=== PATIENT | female | born 1950 | race Caucasian/White ===

== ENCOUNTER → 2023-07-28 11:28 | Outpatient (REF) | payer MEDICARE, OTHER, SELFPAY ==
[2023-07-28 15:35] LABS: % Basophils 0.8 % (0-2); % Eosinophils 0.8 % (0-6); % Immature Granulocytes 0.3 % (0-0.5); % Lymphocytes 28.6 % (20.5-51.1); % Monocytes 4.6 % (1.7-9.3); % Neutrophils 64.9 % (42.2-75.2); Absolute Basophils 0.1 10^3/uL (0-0.2); Absolute Eosinophils 0.1 10^3/uL (0-0.7); Absolute Lymphocytes 1.9 10^3/uL (1.2-3.4); Absolute Monocytes 0.3 10^3/uL (0.1-0.6); Absolute Neutrophils 4.2 10^3/uL (1.4-6.5); Hematocrit 41.4 % (37.0-47.0); Hemoglobin 13.9 g/dL (12.0-16.0); Mean Corp Hgb Conc. 33.6 g/dL (33.0-37.0); Mean Corpuscular Hgb 29.5 pg (27.0-31.0); Mean Corpuscular Volume 87.9 fL (81.0-99.0); Mean Platelet Volume 9.7 fL (7.4-10.4); Nucleated Red Blood Cells % 0 %; Platelet Count 310 10^3/uL (130-400); Red Blood Cell Count 4.71 10^6/uL (4.20-5.40); Red Cell Dist. Width 13.8 % (11.5-14.5); White Blood Cell Count 6.5 10^3/uL (4.8-10.8)
[2023-07-28 15:45] LABS: ALT (SGPT) 34 U/L (0-35); AST (SGOT) 41 U/L (14-36); Albumin 4.3 g/dl (3.5-5.0); Alkaline Phosphatase 61 U/L (38-126); Blood Urea Nitrogen 19 mg/dl (7-17); Carbon Dioxide 29 mmol/L (22-30); Chloride 101 mmol/L (98-107); Glucose 118 mg/dl (70-99); HDL Cholesterol 78 mg/dl; LDL Cholesterol, Calculated 71 mg/dl; Potassium 4.2 mmol/L (3.5-5.1); Sodium 140 mmol/L (135-145); Total Bilirubin 0.7 mg/dl (0.2-1.3); Total Cholesterol 166 mg/dl (50-199); Total Protein 7.9 g/dl (6.3-8.2); Triglyceride 88 mg/dl (10-149); Very Low Density Lipoprotein 17 mg/dl (0-30); eGFR > 60.00
[2023-07-29 08:24] LABS: Glycohemoglobin (HgbA1c) 6.6 % (4.0-5.6)
== END ==
LOC: HWLAB 11:28
PROVIDERS: ATTENDING PHYSICIAN Internal Medicine Rheumatology; FAMILY PHYSICIAN Nurse Practitioner Adult Health
DX: E78.2 Mixed hyperlipidemia (principal); R73.03 Prediabetes; E66.1 Drug-induced obesity; M06.4 Inflammatory polyarthropathy; M16.0 Bilateral primary osteoarthritis of hip; M17.0 Bilateral primary osteoarthritis of knee; M48.061 Spinal stenosis, lumbar region without neurogenic claudication; M50.30 Other cervical disc degeneration, unspecified cervical region; M51.37 Other intervertebral disc degeneration, lumbosacral region; M65.342 Trigger finger, left ring finger; M79.10 Myalgia, unspecified site; Z68.44 Body mass index [BMI] 60.0-69.9, adult
CPT/HCPCS: 36415; 80053; 80061; 83036; 85025; 86140

== ENCOUNTER → 2023-09-08 12:00 | Outpatient (REF) | payer MEDICARE, OTHER, SELFPAY ==
--- NOTE | 2023-09-05 12:29 | PN.DIAED02 ---
Referral
DSME Class Series Code: [id number]
Referred For: Diabetes Self-Management Training
PHI Release Authorization Form Signed: Yes
Demographic
(1) Type 2 diabetes mellitus
Status: Acute Code(s): E11.9 - Type 2 diabetes mellitus without complications
Patient's primary language-: Sami
Education: Advanced college degree
Occupation: Retired
- Social
Primary Support Person: Self
Primary Care Takers: Self
Living Arrangements: Self
- Learning Methods
Preferred Method: Reading, Hands-on demonstration, Other (visual learner)
Barriers to Learning: None
Glycemic Control
- Blood Glucose Monitoring Assessment
Date: 09/05/23
Blood glucose monitoring at home: No
Monitor Brands: [employer] (Contour Next EZ)
Frequency: 2x per day
Time: fasting, after breakfast, after lunch, after dinner
- Hemoglobin A1c
Date: 07/28/23
A1C Percentage (%): 6.6 (6.2% 03/13/23)
Medical History of Diabetes
Family Diabetes History: Other (2 cousins)
Previous Diabetes Education: No
Previous visit with Dietitian: No
Complications/Comorbidity/Specialist: Neuropathy, Other / symptoms (3 TIA (10/2020), Obesity, RA, osteoarthritis)
Measures
- Anthropometrics
Height: 5 ft
Actual Weight: 309 lb 8 oz
- Blood Pressure / Pulse
Blood pressure: 148/57
- Diabetes Management
Medical Management for Diabetes: Complete physical exam (07/2023), Dental exam (08/2023), Dilated eye exam (09/2022), Flu Vaccination (03/2023), Foot exam (09/2023), Pneumonia vaccination (has received,date unknown), Other (Covid-19 vaccine-dates
unknown 'I have had all shots')
Self-Care
- Tobacco Usage
Do you now, or have you ever smoked?: Never smoked
- Alcohol & Drugs Usage
Drinks Alcohol: Yes
Amount/day: Rarely
- Meals & Dining
Meals & Dining: Patient skips meals: Yes ('sometimes'. discussed), Food Intolerance / Allergy: No, Cultural / Bahai Dietary Needs: No
Primary Food Gluer And Slicer Hand: Friend
Primary Continuous Dryout Operator: Self
Dining Out Frequency: 4-6x per week (3-4)
- Physical Activity
Physical Limitation: Yes (using single pt cane,)
Patient participates in physical Activity: Yes
Activity Types: Other (walking/stretching/PT exercise)
Duration: 10-20 minutes (10-15)
Frequency: 3-5x per week (3)
Intensity: Easy
- Patient-Self Assessment
Diabetes Knowledge: Fair
Feelings About Diabetes: Denial, Overwhelmed / Confused, Sadness / Depression
General Health: Good
Importance of Health: Extremely
Stress Level: Medium
Depression Survey Score: 2
Care Plan
- Education Needs
Patient Education Needs: Diabetes disease process, Chronic complications, Acute complications, Medication, Monitoring, Physical activity, Psychosocial Adjustment, Nutritional management, Goal setting & problem solving
Recommended Diabetes Training Program based on assessment: Outpatient Diabetes Education Program
- Plan of Care
Plan of Care:
Kianna recently diagnosed T2DM, A1C 6.6%. She states she is in denial and would 'like to wish it away'. Provided with and instructions given on Contour NExt EZ glucometer. Good return demonstration with result of 96 mg/dl. Initially fearful to stick
herself but states 'it wasn't bad', lancing device set at 2. Aware of pesting technique, testing pattern and expected results. Handout with pattern and results provided for reference as well as logsheet to record results. She will call [facility]
for RX for the test strips and lancets. Wrote down exactly what to ask for. She was started on Mounjaro for both blood sugar control and obesity. Using her home scale, she has lost 5# to date. She states she does not eat very much. She is up to date
on all appointments. History of RA and osteo which often limits her ability to participate in exercise. Handout on chair exercises given, she has a band at home. Handout on snack options given. Goals established and directions to classroom given.
Phone number provided for any follow up questions.
--- NOTE | 2023-09-05 12:58 | PN.DIAED04 ---
Education Record
- Education Record
Class Attended: Class 1 (pre registration 09/05/23 for outpt DSME classes starting 09/08/23)
DSME Class Series Code: [id number]
Instructor: Registered Nurse (Rosalie Pedro, RN, BSN, [facility])
Class Curriculum:
Outpatient Diabetes Education Program:
Initial Assessment (45 minutes)
Individualized assessment
Develop personal strategies to promote health and behavior change
Development of diabetes self-management support plan
Class Length (mins): 90
Pre-Program Knowledge: Needs review / Assistance
Pre-Test Score (%): 65
Goals
- Goal 1
Being Active: Exercise 15 minutes-3 times per week (walking and stretching. Handout on chair exercises provided.)
Goals To Be Evaluated: Exercise 15 mins-3x/week
- Goal 2
Healthy Eating: Make better food choices
Goals To Be Evaluated: Make better food choices
- Goal 3
Monitoring: Take blood sugar in the prescribed pattern (Handout provided )
Goals To Be Evaluated: Test BG-prescribed times
--- NOTE | 2023-09-09 09:47 | PN.DIAED14 ---
This is to notify you that your patient with diabetes, NAPOLEON RAHMAN ( 1950), has enrolled in our diabetes self-management classes that are being held at [facility].
These classes will include an introduction to diabetes, diet, medication, exercise and prevention of complications. At the end of our class series, you will receive a report of your patient's participation and progress for your records.
Please contact me at the Diabetes Center, , if there is any particular information regarding your patient that might be helpful to me.
Sincerely,
--- NOTE | 2023-09-11 14:55 | PN.DIAED06 ---
Meal Plans - Regular
- Meal Plan
Diabetic Meal Plan Name: 1400 calories
Breakfast - Total Carbohydrate (grams): 30
Breakfast - Starch Carbohydrate: 0
Breakfast - Fruit Carbohydrate: 0
Breakfast - Milk Carbohydrate: 0
Breakfast - Nonstarchy Vegetables: Yes
Breakfast - Meat/Protein: 1
Breakfast - Fat: 2
Morning Snack - Total Carbohydrate (grams): 15
Morning Snack - Starch Carbohydrate: 0
Morning Snack - Fruit Carbohydrate: 0
Morning Snack - Milk Carbohydrate: 0
Morning Snack - Nonstarchy Vegetables: Yes
Morning Snack - Meat/Protein: 0.5
Morning Snack - Fat: 0
Lunch - Total Carbohydrate (grams): 30
Lunch - Starch Carbohydrate: 0
Lunch - Fruit Carbohydrate: 0
Lunch - Milk Carbohydrate: 0
Lunch - Nonstarchy Vegetables: Yes
Lunch - Meat/Protein: 2
Lunch - Fat: 1
Afternoon Snack - Total Carbohydrate (grams): 15
Afternoon Snack - Starch Carbohydrate: 0
Afternoon Snack - Fruit Carbohydrate: 0
Afternoon Snack - Milk Carbohydrate: 0
Afternoon Snack - Nonstarchy Vegetables: Yes
Afternoon Snack - Meat/Protein: 0.5
Afternoon Snack - Fat: 0
Dinner - Total Carbohydrate (grams): 30
Dinner - Starch Carbohydrate: 0
Dinner - Fruit Carbohydrate: 0
Dinner - Milk Carbohydrate: 0
Dinner - Nonstarchy Vegetables: Yes
Dinner - Meat/Protein: 2
Dinner - Fat: 1
Evening Snack - Total Carbohydrate (grams): 15
Evening Snack - Starch Carbohydrate: 0
Evening Snack - Fruit Carbohydrate: 0
Evening Snack - Milk Carbohydrate: 0
Evening Snack - Nonstarchy Vegetables: Yes
Evening Snack - Meat/Protein: 0
Evening Snack - Fat: 0
--- NOTE | 2023-09-15 14:43 | PN.DIAED04 ---
Education Record
- Education Record
Class Attended: Class 1
DSME Class Series Code: [id number]
Instructor: Nurse Practitioner (JORGE A Aparicio)
Class Length (mins): 120
Post-Class 1 Test Score (%): 100
== END ==
LOC: DES 12:00
PROVIDERS: ATTENDING PHYSICIAN Nurse Practitioner Adult Health
DX: E11.9 Type 2 diabetes mellitus without complications (principal)
CPT/HCPCS: 99078

== ENCOUNTER → 2023-09-15 12:00 | Outpatient (REF) | payer MEDICARE, OTHER, SELFPAY ==
--- NOTE | 2023-09-17 08:18 | PN.DIAED04 ---
Education Record
- Education Record
Class Attended: Class 2
[facility] Class Series Code: [id number]
Instructor: Registered Dietitian (Neha Jo, BIRGITN, LDN)
Class Length (mins): 120
== END ==
LOC: DES 12:00
PROVIDERS: ATTENDING PHYSICIAN Nurse Practitioner Adult Health
DX: E11.9 Type 2 diabetes mellitus without complications (principal)
CPT/HCPCS: 99078

== ENCOUNTER → 2023-09-17 11:33 | Outpatient (REF) | payer MEDICARE, OTHER, SELFPAY | LOC: HWWDC 11:33 | PROVIDERS: ATTENDING PHYSICIAN Nurse Practitioner Adult Health | DX: Z12.31 Encounter for screening mammogram for malignant neoplasm of breast (principal) | CPT/HCPCS: 77063; 77067 ==

== ENCOUNTER → 2023-09-22 12:00 | Outpatient (REF) | payer MEDICARE, OTHER, SELFPAY | LOC: DES 12:00 | PROVIDERS: ATTENDING PHYSICIAN Nurse Practitioner Adult Health | DX: E11.9 Type 2 diabetes mellitus without complications (principal) | CPT/HCPCS: 99078 ==

== ENCOUNTER → 2023-10-06 12:00 | Outpatient (REF) | payer MEDICARE, OTHER, SELFPAY ==
--- NOTE | 2023-10-06 15:40 | PN.DIAED04 ---
Education Record
- Education Record
Class Attended: Class 4
DSME Class Series Code: [id number]
Instructor: Nurse Practitioner (JORGE A Aparicio)
Class Length (mins): 120
Post-Class 4 Test Score (%): 87
== END ==
LOC: DES 12:00
PROVIDERS: ATTENDING PHYSICIAN Nurse Practitioner Adult Health
DX: E11.9 Type 2 diabetes mellitus without complications (principal)
CPT/HCPCS: 99078

== ENCOUNTER → 2023-10-13 12:00 | Outpatient (REF) | payer MEDICARE, OTHER, SELFPAY ==
--- NOTE | 2023-10-14 08:06 | PN.DIAED16 ---
This is to notify you that your patient with diabetes, NAPOLEON RAHMNA ( 1950), has attended the entire series of Diabetes Self-Management Education Classes.
Class 1 (120 minutes): Diabetes Overview - monitoring, stress/psychosocial adjustment, support, goal setting
Class 2 (120 minutes): Meal Planning - serving sizes, menu plans
Class 3 (120 minutes): Introduction to Carbohydrate Counting, Analyzing Food Labels
Class 4 (120 minutes): Medication, Exercise and Activity
Class 5 (120 minutes): Sick Day Management, Strategies to Reduce Complications, Problem Solving, Resources
The following behavioral goals were identified:
Exercise 15 mins-3x/week
Make better food choices
Test BG-prescribed times
A follow-up call will be made within three to six months to evaluate attainment of these goals and to check post-program Hemoglobin A1c and overall progress. All class participants are encouraged to contact me if I can be any further assistance in
learning how to manage their diabetes.
Sincerely,
JORGE A Covington-, [facility]
Diabetes & Nutrition Services Director
--- NOTE | 2023-10-14 08:32 | PN.DIAED04 ---
Education Record
- Education Record
Class Attended: Class 5
DSME Class Series Code: [id number]
Instructor: Registered Nurse (Rosalie Pedro, RN, BSN, [facility])
Class Curriculum:
Outpatient Diabetes Education Program:
Class 5 (120 minutes)
Prevent, detect, and treat acute complications
Prevent, detect, and treat chronic complications through risk reduction
Develop personal strategies to address psychosocial issues and concerns
Development of diabetes self-management support plan
Letter to physician with DSMS plan attached sent
Class Length (mins): 120
Post-Program Knowledge: Demonstrates competency
Post-Test Score (%): 83
Post-Program Assessment
- Post-Program Assessment
Actual Weight: 297 lb 6 oz
Blood pressure: 161/61
Post-Program Depression Survey Score: 2
Reviewing Previous Goals?: Yes
Pre-Program Depression Survey Score: 2
- Goals 1 Evaluation
Goals To Be Evaluated: Exercise 15 mins-3x/week
- Goals 2 Evaluation
Goals To Be Evaluated: Make better food choices
- Goals 3 Evaluation
Goals To Be Evaluated: Test BG-prescribed times
== END ==
LOC: DES 12:00
PROVIDERS: ATTENDING PHYSICIAN Family Medicine
DX: E11.9 Type 2 diabetes mellitus without complications (principal)
CPT/HCPCS: 99078

== ENCOUNTER → 2023-10-29 12:24 | Outpatient (REF) | payer MEDICARE, OTHER, SELFPAY | LOC: RAD 12:24 | PROVIDERS: ATTENDING PHYSICIAN Nurse Practitioner Adult Health | DX: R60.0 Localized edema (principal); M79.605 Pain in left leg | CPT/HCPCS: 93971 ==

== ENCOUNTER → 2023-11-04 12:00 | Outpatient (REF) | payer MEDICARE, OTHER, SELFPAY ==
[2023-11-04 15:18] LABS: % Basophils 0.3 % (0-2); % Eosinophils 3.2 % (0-6); % Immature Granulocytes 0.1 % (0-0.5); % Lymphocytes 49.2 % (20.5-51.1); % Monocytes 4.5 % (1.7-9.3); % Neutrophils 42.7 % (42.2-75.2); Absolute Eosinophils 0.4 10^3/uL (0-0.7); Absolute Lymphocytes 5.8 10^3/uL (1.2-3.4); Absolute Monocytes 0.5 10^3/uL (0.1-0.6); Hemoglobin 13.6 g/dL (12.0-16.0); Mean Corp Hgb Conc. 33.2 g/dL (33.0-37.0); Mean Corpuscular Hgb 29.3 pg (27.0-31.0); Mean Corpuscular Volume 88.4 fL (81.0-99.0); Nucleated Red Blood Cells % 0 %; Platelet Count 323 10^3/uL (130-400); Red Blood Cell Count 4.64 10^6/uL (4.20-5.40); Red Cell Dist. Width 15.3 % (11.5-14.5); White Blood Cell Count 11.8 10^3/uL (4.8-10.8)
[2023-11-04 15:40] LABS: ALT (SGPT) 39 U/L (0-35); AST (SGOT) 39 U/L (14-36); Albumin 4.3 g/dl (3.5-5.0); Alkaline Phosphatase 67 U/L (38-126); Blood Urea Nitrogen 25 mg/dl (7-17); Calcium 9.6 mg/dl (8.4-10.2); Carbon Dioxide 26 mmol/L (22-30); Chloride 102 mmol/L (98-107); Glucose 83 mg/dl (70-99); Potassium 4.2 mmol/L (3.5-5.1); Sodium 138 mmol/L (135-145); Total Bilirubin 0.5 mg/dl (0.2-1.3); Total Protein 7.3 g/dl (6.3-8.2); eGFR > 60.00
[2023-11-04 15:42] LABS: C-Reactive Protein < 5.00 mg/L (0.0-10.00)
[2023-11-04 15:54] LABS: Microalbumin, Random Urine 5.1 mg/dl (0.6-1.7); Microalbumin/creatinine Ratio 46.9 mg/g
[2023-11-05 09:09] LABS: Glycohemoglobin (HgbA1c) 5.8 % (4.0-5.6)
== END ==
LOC: HWLAB 12:00
PROVIDERS: ATTENDING PHYSICIAN Internal Medicine Rheumatology; FAMILY PHYSICIAN Nurse Practitioner Adult Health
DX: E66.1 Drug-induced obesity (principal); M06.4 Inflammatory polyarthropathy; M16.0 Bilateral primary osteoarthritis of hip; M17.0 Bilateral primary osteoarthritis of knee; M48.061 Spinal stenosis, lumbar region without neurogenic claudication; M50.30 Other cervical disc degeneration, unspecified cervical region; M51.37 Other intervertebral disc degeneration, lumbosacral region; M79.10 Myalgia, unspecified site; Z68.44 Body mass index [BMI] 60.0-69.9, adult; E11.9 Type 2 diabetes mellitus without complications; K76.0 Fatty (change of) liver, not elsewhere classified
CPT/HCPCS: 36415; 80053; 82043; 82570; 83036; 85025; 86140

== ENCOUNTER → 2023-12-24 10:26 | Outpatient (REF) | payer MEDICARE, OTHER, SELFPAY ==
[2023-12-24 13:04] LABS: % Basophils 0.6 % (0-2); % Immature Granulocytes 0.1 % (0-0.5); % Lymphocytes 24.8 % (20.5-51.1); % Monocytes 5.4 % (1.7-9.3); % Neutrophils 68.1 % (42.2-75.2); Absolute Basophils 0.1 10^3/uL (0-0.2); Absolute Eosinophils 0.1 10^3/uL (0-0.7); Absolute Lymphocytes 2.1 10^3/uL (1.2-3.4); Absolute Monocytes 0.5 10^3/uL (0.1-0.6); Absolute Neutrophils 5.6 10^3/uL (1.4-6.5); Hematocrit 38.3 % (37.0-47.0); Hemoglobin 13.1 g/dL (12.0-16.0); Mean Corp Hgb Conc. 34.2 g/dL (33.0-37.0); Mean Corpuscular Hgb 30.2 pg (27.0-31.0); Mean Corpuscular Volume 88.2 fL (81.0-99.0); Mean Platelet Volume 9.8 fL (7.4-10.4); Nucleated Red Blood Cells % 0 %; Platelet Count 305 10^3/uL (130-400); Red Blood Cell Count 4.34 10^6/uL (4.20-5.40); Red Cell Dist. Width 14.6 % (11.5-14.5); White Blood Cell Count 8.3 10^3/uL (4.8-10.8)
[2023-12-24 13:18] LABS: ALT (SGPT) 17 U/L (0-35); AST (SGOT) 24 U/L (14-36); Albumin 4.4 g/dl (3.5-5.0); Alkaline Phosphatase 67 U/L (38-126); Blood Urea Nitrogen 15 mg/dl (7-17); Calcium 9.5 mg/dl (8.4-10.2); Carbon Dioxide 28 mmol/L (22-30); Chloride 103 mmol/L (98-107); Direct Bilirubin 0.2 mg/dl (0.0-0.4); GGTP 30 U/L (12-43); Glucose 103 mg/dl (70-99); Sodium 138 mmol/L (135-145); Total Bilirubin 0.5 mg/dl (0.2-1.3); Total Protein 7.1 g/dl (6.3-8.2); eGFR > 60.00
== END ==
LOC: HWLAB 10:26
PROVIDERS: ATTENDING PHYSICIAN Internal Medicine Rheumatology; FAMILY PHYSICIAN Nurse Practitioner Adult Health
DX: E66.1 Drug-induced obesity (principal); M06.4 Inflammatory polyarthropathy; M16.0 Bilateral primary osteoarthritis of hip; M17.0 Bilateral primary osteoarthritis of knee; M48.061 Spinal stenosis, lumbar region without neurogenic claudication; M50.30 Other cervical disc degeneration, unspecified cervical region; M51.37 Other intervertebral disc degeneration, lumbosacral region; M79.10 Myalgia, unspecified site; M81.0 Age-related osteoporosis without current pathological fracture; D72.829 Elevated white blood cell count, unspecified; R79.89 Other specified abnormal findings of blood chemistry; E78.5 Hyperlipidemia, unspecified
CPT/HCPCS: 36415; 80053; 82248; 82977; 85025; 86140

== ENCOUNTER 2023-12-31 12:44 | Emergency (ER) | payer MEDICARE, OTHER, SELFPAY ==
[2023-12-31 12:52] VITALS: BP 124/58
[2023-12-31 13:04] LABS: % Basophils 0.6 % (0-2); % Eosinophils 0.5 % (0-6); % Immature Granulocytes 0.2 % (0-0.5); % Lymphocytes 29.7 % (20.5-51.1); % Monocytes 5.3 % (1.7-9.3); % Neutrophils 63.7 % (42.2-75.2); Absolute Basophils 0.1 10^3/uL (0-0.2); Absolute Lymphocytes 2.6 10^3/uL (1.2-3.4); Absolute Monocytes 0.5 10^3/uL (0.1-0.6); Absolute Neutrophils 5.5 10^3/uL (1.4-6.5); Hematocrit 40.5 % (37.0-47.0); Hemoglobin 14.1 g/dL (12.0-16.0); Mean Corp Hgb Conc. 34.8 g/dL (33.0-37.0); Mean Corpuscular Hgb 29.6 pg (27.0-31.0); Mean Corpuscular Volume 84.9 fL (81.0-99.0); Mean Platelet Volume 9.3 fL (7.4-10.4); Nucleated Red Blood Cells % 0 %; Platelet Count 314 10^3/uL (130-400); Red Blood Cell Count 4.77 10^6/uL (4.20-5.40); Red Cell Dist. Width 14.7 % (11.5-14.5); White Blood Cell Count 8.7 10^3/uL (4.8-10.8)
[2023-12-31 13:23] LABS: ALT (SGPT) 22 U/L (0-35); AST (SGOT) 27 U/L (14-36); Albumin 4.5 g/dl (3.5-5.0); Alkaline Phosphatase 65 U/L (38-126); Blood Urea Nitrogen 17 mg/dl (7-17); Calcium 9.2 mg/dl (8.4-10.2); Carbon Dioxide 25 mmol/L (22-30); Chloride 102 mmol/L (98-107); Glucose 115 mg/dl (70-99); Potassium 3.5 mmol/L (3.5-5.1); Sodium 136 mmol/L (135-145); Total Bilirubin 0.7 mg/dl (0.2-1.3); Total Protein 7.2 g/dl (6.3-8.2); eGFR > 60.00
[2023-12-31 13:39] VITALS: BP 115/62
[2023-12-31 13:45] VITALS: BMI 53.0
[2023-12-31 14:23] VITALS: BP 107/72
[2023-12-31 15:00] VITALS: BP 118/92
--- NOTE | 2023-12-31 15:00 | ED.GENMED ---
History of Present Illness
General
Chief Complaint: Heart Rate Problem
Time Seen by Provider: 12/31/23 13:48
History of Present Illness
History of Present Illness:
73-year-old female history of TIAs, hypertension, hyperlipidemia presenting with palpitations starting yesterday. Patient states that she had episode of nonbloody diarrhea yesterday which is since resolved. Patient states that she followed up with
her PCP today who was noted to be in atrial fibrillation with RVR and was sent to the emergency department for further evaluation. Patient states that she has shortness of breath with exertion starting today. Patient states that while walking her
PCPs office, she had a sit and rest secondary to shortness of breath. Patient denies chest pain, lower extremity swelling, fever, chills, cough or urinary symptoms. Pt states she takes baby aspirin, no anticoagulation. Pt denies any palptiations
currently.
Past History
Past History
ED Past Medical History: Other (Rheumatoid arthritis, IBS, colitis)
ED Past Surgical History: Cholecystectomy
Social History
Tobacco: Non-smoker
Alcohol: None
Living: alone
Phy Exam
Physical Exam
Physical Exam:
General: Alert, no acute distress
Head: NCAT
Eyes: clear conjunctiva
Neck: supple
Cardiac: tachycardic, irregularly irregular rhythm
Lungs: clear to auscultation bilaterally. No wheezes, rales, or rhonchi. Speaking full unlabored sentences. No respiratory distress.
Abdomen: soft, nondistended nontender. No rebound or guarding.
MSK: no lower extremity edema bilaterally. No deformity
Skin: warm, dry
Neuro: Alert and oriented x3. no focal deficits
Course
Orders/Labs/Results
Orders:
Orders
12/31/23 12:45
ECG [Electrocardiogram (*1)] Urgent
Reason for Study: Chest Pain
12/31/23 12:46
EKG- Treatment ONCE
12/31/23 12:56
Complete Blood Count/With Diff Urgent
Comprehensive Metabolic Panel Urgent
TSH Reflex To Free T4 Urgent
Comment: ADD ON
12/31/23 14:55
Add On- LAB Routine
Tests Added?: TSH with reflex to free T4
12/31/23 15:24
Diltiazem HCl [Cardizem] 20 mg IV NOW STA
12/31/23 15:25
CXR [CR Chest Portable - 1 View] Urgent
Comment:
Reason For Exam: sob
Reason Study Needs to be Portable: Patient Unstable
12/31/23 15:30
Electrocardiogram (*1) Urgent
Reason for Study: Abnormal EKG
EKG- Treatment ONCE
Diltiazem 125 mg/125 ml Nss [Cardizem] 125 mg in 125 ml IV PER PROTOCOL
Initial dose in mg/hr, then titrate:: 5
Titrate to keep:: Heart rate 80-100 bpm
Titrate by mg/hr:: 2.5 mg/hr
Frequency of titrations (minutes):: 15
Maximum dose in mg/hr:: 15
12/31/23 17:08
Troponin I Urgent
Abnormal Lab Results
12/31/23
12:56
RDW 14.7 H %
(11.5-14.5)
Glucose 115 H mg/dl
(70-99)
12/31/23 12:56
12/31/23 12:56
Vital Signs
Initial and Last Documented VS:
Initial Vital Signs
Temp Pulse Resp Pulse Ox
98.3 F 109 18 97
12/31/23 12:50 12/31/23 12:50 12/31/23 12:50 12/31/23 12:50
Last Documented Vital Signs
Temp Pulse Resp BP Pulse Ox
98.3 F 76 19 124/87 98
12/31/23 12:50 12/31/23 17:00 12/31/23 17:00 12/31/23 18:30 12/31/23 18:30
MDM/Problems Addressed
MDM/Problems Addressed:
Patient presents to the Emergency Department with palpitation, sob
Number and Complexity of Problems Addressed at the Encounter
� Chronic conditions affecting care:
� Acute Exacerbation and/or Progression of Chronic Illness:
� Differential Diagnosis includes: symptomatic afib, hyperthyroidism, electrolyte abnormality
Amount and/or Complexity of Data to be Reviewed and Analyzed
� I performed an independent evaluation of and my interpretation is:
EKG: atrial fibrillation at 140bpm with QTc [address] ST depressions laterally. Repeat EKG shows NSR at 71bpm with TN 168 QTc 425 no acute ischemic changes, previous ST depressions resolved.
CT:
Xrays:
Laboratory Studies: troponin, electrolytes, WBC, hemoglobin, creatinine, TSH within normal limits.
Other:
� Review of other/old records reveals:
� Clinical information was obtained by an independent historian:
� Prescriptions/Medications Considered but not given:
� Further testing considered but not performed:
Risk of Complications and/or Morbidity or Mortality of Patient Management
� Social Determinants of health affecting care:
� Discussion with other providers (PCP, Hospitalists, Consultants, etc): Discussed with DCA PA who evaluated patient at bedside. Because patient is not certain palpitations started yesterday, recommended admission for IV cardizem and will cardiovert
with RICARDA during hospitalization.
� Escalation of care including admission/observation vs risk of discharge considered: 73yoF presenting with palpitations yesterday, shortness of breath starting today, who was found to be in new onset afib with RVR at PCP's office today. Pt states
she had an episode of nonbloody diarrhea yesterday. Otherwise no chest pain, LE edema, fever, chills, cough. Pt evaluated by cardiology who recommended admission due to no known time of onset. On reevaluation, patient spontaneously converted to NSR
prior to administering cardizem. Repeat EKG confirms NSR. Patient evaluated by Dr. Trivedi, cardiology, in ER who recommended discharge with toprol 25mg daily, eliquis, and outpatient echocardiogram. Labs within normal limits. CXR clear. Discussed
results with patient at bedside, discharged home with eliquis/toprol.
*Critical Care Note
Total Time (30-74mins, 75-104mins- exclusive of procedures): Not Applicable
ED Attending Note
-
Portions of this chart may have been created with voice recognition software.� Occasional wrong word or��sound alike� substitutions may have occurred due to the inherent limitations of voice recognition software.
Discharge Plan
Departure
Patient Disposition: Home (Routine Discharge)
Date of Disposition: 12/31/23
Time of Disposition: 18:07
Patient with high blood pressure during this ER visit?: No
Discharge Problem:
Atrial fibrillation, new onset
Instructions: Atrial Fibrillation (DC)
Prescriptions:
New
metoprolol succinate [Toprol XL] 25 mg tablet extended release 24 hr
25 mg PO DAILY Qty: 60 0RF
Eliquis 5 mg tablet
5 mg PO BID Qty: 120 0RF
No Action
acetaminophen [Tylenol Extra Strength] 500 MG tablet
1,000 mg PO DAILY
methotrexate sodium 2.5 MG tablet
15 mg PO SA
folic acid 1 MG tablet
1 mg PO DAILY
hydrochlorothiazide 25 MG tablet
50 mg PO DAILYPRN PRN (Reason: swelling)
losartan 25 mg Tablet
25 mg PO DAILY
oxybutynin chloride [Ditropan] 5 mg Tablet
5 mg PO DAILY
polyethylene glycol 3350 [Miralax] 17 gram Powder In Packet
17 g PO DAILYPRN PRN (Reason: constipation)
cetirizine [Zyrtec] 5 mg Tablet
5 mg PO DAILY
docusate sodium [Colace] 100 mg Capsule
100 mg PO DAILYPRN PRN (Reason: CONSTIPATION)
rosuvastatin 20 mg Tablet
20 mg PO DAILY
aspirin 81 mg Tablet,Delayed Release (Dr/Ec)
81 mg PO DAILY
pantoprazole 40 mg Tablet,Delayed Release (Dr/Ec)
40 mg PO DAILY
tramadol 100 mg Tablet Extended Release 24 Hr
100 mg PO DAILY
Mounjaro 7.5 mg/0.5 mL Pen Injector
7.5 mg SC WE
Referrals:
Mariangel Lozano PA-C [Specified Professional Personl] - 01/27/24 9:20 am (You have a cardiology follow-up appointment at the [place] office with Dr. Chelly Love's physician school psychologist assistant, Mariangel. Please call with questions)
Darlyn Brothers CRNP [Family Provider] -
Activity Restrictions/Additional Instructions:
you are scheduled for an echocardiogram on Friday01/21/24 at 9:20AM at [facility]. Please see order and call with questions.
Take eliquis twice daily. Take metoprolol once daily
Return to the emergency department for palpitations, shortness of breath, chest pain, dizziness, if you hit your head, black/bloody stools or new/worsening symptoms
Interventions
Interventions:
*Risk Screen - Suicide Last Done: 12/31/23 12:50
*General Assessment Last Done: 12/31/23 12:50
*Neglect/Abuse Screening Last Done: 12/31/23 12:50
ED- Fall Risk Assessment Last Done: 12/31/23 13:43
*ED COVID-19 Vaccine History Last Done: 12/31/23 12:50
*Nursing Disposition Last Done: 12/31/23 18:43
ED- Cardiac Assessment Last Done: 12/31/23 13:43
ED- Pulmonary Assessment Last Done: 12/31/23 13:43
Discharge Date and Time
Discharge Date/Time: 12/31/23 18:46
Print Language: KHMER
--- NOTE | 2023-12-31 15:40 | CON.CAR ---
Addendum entered and electronically signed by Santo Trivedi MD 12/31/23 16:38:
I saw and examined the patient.
The Vulcanizing Machine Operator's note was reviewed and I agree with the note.
Comment:
GEN: No distress, awake, Ox3
HEENT: supple, anicteric, mmm
LUNGS: CTA, no wheezes/rales
CV: Reg, S1/S2, 1/6 syst LSB, no gallop
ABD: soft, BS+, NT/ND
EXT: No edema
NEURO: Gross non-focal
SKIN: No rash
Plan:
She has a past medical history of hypertension, hyperlipidemia, obesity, TIAs, and polyarthropathy who presents with diarrhea, for chest fluttering and was found to be in new onset atrial fibrillation. She was sent to the emergency room for further
evaluation was placed on a Cardizem drip. The patient has noticed some intermittent palpitations but was not completely aware of the A-fib. She does not take anticoagulation. The patient then spontaneous converted back into sinus rhythm.
[id number] score is 6. Will start Eliquis 5 mg p.o. twice daily. Would stop aspirin. Will arrange echocardiogram.
Will start Toprol 25 mg daily. Continue Cozaar.
We discussed if she has further palpitations at that point we will consider antiarrhythmic therapy, outpatient monitoring or further management.
We will arrange outpatient follow-up.
Original Note:
Consultation
Consultation Request
Date/Time Consultation Performed: 12/31/23
Requesting Provider: Dr. Jorge
Performing Provider: Liliya Tan PA-C for Dr. Trivedi
Reason for Consultation: afib
Medical History
-
Chief Complaint: afib
History of Present Illness:
Patient is a 73-year-old female with past medical history of hypertension, hyperlipidemia, abnormal LFTs, morbid obesity, inflammatory polyarthropathy, history of TIAs in 2020. She underwent prior cardiac cath lab manager for this which was negative for
arrhythmia. She has not had recurrence of symptoms since. In July of this year she was diagnosed with type 2 diabetes with a hemoglobin A1c of 6.6%. She was started on Mounjaro and since then has lost 43 pounds and was just told that her
hemoglobin A1c had improved to 5.8%. She reports she was feeling well until yesterday when she had a large episode of diarrhea. Then last evening she reports she felt some fluttering in her chest. This morning she felt hot and clammy, as well as
'offkilter'. She had a routine primary care physician appointment scheduled for this morning and upon walking to the appointment at the [facility], felt some shortness of breath and needed to stop and rest on the way up to the
office, which she states she does not normally need to do. EKG completed in office which showed new rapid atrial fibrillation and patient was referred to ER for further evaluation, resulting in cardiology consultation. Patient is not on
anticoagulation, however has been compliant with her aspirin 81 mg daily. She reports she is unable to tell me if she has ever been in A-fib before.
PMH:
Type 2 diabetes diagnosed 08/2023
History of TIAs in 2020
Hypertension
Hyperlipidemia
Abnormal LFTs
Morbid obesity
FAVIAN on CPAP
Inflammatory polyarthropathy
History of PVCs
Past Medical History
Past Medical History: Other (in HPI)
Social History
Living: Alone
Employment: Retired
Family History
Family History: Reviewed & Not Pertinent
Allergies / Home Medications
Allergy/AdvReac Type Severity Reaction Status Date / Time
adhesive tape Allergy Mild SKIN Verified 12/31/23 12:50
IRRITATION
codeine [Codeine] Allergy Nausea / Verified 10/18/22 09:05
Vomiting
thiopental [From Pentothal] Allergy Nausea / Verified 10/18/22 09:05
Vomiting
�Medication �Instructions �Recorded �Confirmed �Type
acetaminophen 500 mg tablet 1,000 mg PO DAILY 11/25/20 10/18/22 History
(Tylenol Extra Strength)
ascorbic acid (vitamin C) 1,000 mg 1,000 mg PO DAILY Supplement 11/25/20 10/18/22 History
tablet (Vitamin C)
folic acid 1 mg tablet 1 mg PO DAILY Supplement 11/25/20 10/18/22 History
hydrochlorothiazide 25 mg tablet 50 mg PO DAILY Fluid 11/25/20 10/18/22 History
retention/Swelling
methotrexate sodium 2.5 mg tablet 15 mg PO SA RA 11/25/20 10/18/22 History
potassium chloride 20 mEq 20 meq PO DAILY 11/25/20 10/18/22 History
tablet,extended release
alendronate 70 mg tablet (Fosamax) 70 mg PO DE LA TORRE 03/20/22 10/18/22 History
losartan 25 mg tablet 25 mg PO DAILY 03/20/22 10/18/22 History
oxybutynin chloride 5 mg tablet 5 mg PO DAILY 03/20/22 10/18/22 History
tramadol 100 mg tablet 100 mg PO DAILY 03/20/22 10/18/22 History
aspirin 81 mg capsule 81 mg PO DAILY 10/15/22 10/18/22 History
calcium carbonate (Tums) 200 mg PO QID PRN INDIGESTION 10/15/22 10/18/22 History
cetirizine 5 mg tablet 5 mg PO DAILY 10/15/22 10/18/22 History
cholecalciferol (vitamin D3) 25 50 mcg PO DAILY 10/15/22 10/18/22 History
mcg (1,000 unit) tablet (Vitamin
D3)
docusate sodium 100 mg capsule 100 mg PO DAILY PRN CONSTIPATION 10/15/22 10/18/22 History
(Colace)
fluticasone propionate 50 1 spray intranasal DAILY PRN 10/15/22 10/18/22 History
mcg/actuation nasal CONGESTION
spray,suspension
lactobacillus combination no.4 3 3,000 mmu cells PO DAILY 10/15/22 10/18/22 History
billion cell capsule (Probiotic)
mecobalamin (vitamin B12) 500 mcg 500 mcg PO DAILY 10/15/22 10/18/22 History
chewable tablet
multivitamin 1 tab PO DAILY 10/15/22 10/18/22 History
polyethylene glycol 3350 17 gram 17 g PO DAILY PRN FIBER 10/15/22 10/18/22 History
oral powder packet (Miralax)
rosuvastatin 20 mg tablet 20 mg PO DAILY 10/15/22 10/18/22 History
sennosides 8.6 mg capsule (senna) 17.2 mg PO HS PRN CONSTIPATION 10/15/22 10/18/22 History
Review of Systems
-
History Source: Patient and Other (friend)
All other systems: Negative unless noted
Physical Exam
Vital Signs
Temp Pulse Resp BP Pulse Ox
98.3 F 115 18 107/72 98
12/31/23 12:50 12/31/23 14:30 12/31/23 14:30 12/31/23 14:23 12/31/23 14:30
Lab Results
12/31/23 12:56
12/31/23 12:56
Physical Exam
General: No Apparent Distress, Comfortable and Other (obese)
HEENT: Normocephalic, Anicteric and Moist Mucous Membranes
Respiratory: Clear and Non Labored Respirations
Cardiac: S1/S2 and Irregular Rhythm
GI: Soft, Non Tender, Non Distended and Normal Bowel Sounds
Musculoskeletal: No Clubbing, No Cyanosis and Edema (trace of B/L LE)
Skin: Warm and Dry
Neuro: AO x 3
Impression / Plan
-
Primary Interventional Physiatrist: Dr. Chelly Love
Assessment:
Presentation with new diagnosis afib with RVR, s/p spontaneous conversion to SR in ER
Type 2 diabetes diagnosed 08/2023, on [facility]
History of TIAs in 2021
Hypertension
Hyperlipidemia
Abnormal LFTs
Morbid obesity
FAVIAN on CPAP
Inflammatory polyarthropathy
History of PVCs
ECHO 12/08/20: EF 55 to 60%, no regional wall motion abnormalities, trace TR, PAP 28 mmHg
Lexiscan nuclear stress test 03/29/21: Normal sestamibi perfusion imaging, EF 64%
Plan:
-Patient presents to [facility] emergency room with new diagnosis A-fib with RVR discovered during routine visit with primary care physician earlier this morning. Fortunately she spontaneously converted to sinus rhythm in ER, after we had
initially discussed admission for IV Cardizem and possible RICARDA/cardioversion in a.m.
-we discussed afib in detail
-? recent diarrhea as possible trigger
-If troponin negative, would plan for discharge from ER with plan for outpatient echocardiogram and cardiac follow-up as already arranged
-Would initiate Eliquis 5 mg twice daily and Toprol 25 mg daily and would stop asa
-TSH pending
-CXR pending
-d/w ER physician. d/w patient and friend at bedside
Data Reviewed
-
EKG: Tracing Personally Visualized and interpreted
Medical Tests (Nuc Med, Echo etc): Report Reviewed by me
Labs: Labs Reviewed by me
Old Records: Reviewed
[2023-12-31 16:39] LABS: TSH Reflex To Free T4 1.16 uIU/ml (0.47-4.68)
[2023-12-31 17:43] LABS: Troponin I < 0.012 ng/ml
[2023-12-31 18:30] VITALS: BP 124/87
== END 2023-12-31 18:46 | disposition home or self-care (01) ==
LOC: EMR 12:44
PROVIDERS: Emergency Medicine; EMERGENCY PHYSICIAN Emergency Medicine; FAMILY PHYSICIAN Nurse Practitioner Adult Health; OTHER PHYSICIAN Internal Medicine Cardiovascular Disease
DX: I48.91 Unspecified atrial fibrillation (principal); E11.9 Type 2 diabetes mellitus without complications; E78.00 Pure hypercholesterolemia, unspecified; I10 Essential (primary) hypertension; G47.33 Obstructive sleep apnea (adult) (pediatric); K58.0 Irritable bowel syndrome with diarrhea; M06.4 Inflammatory polyarthropathy; Z79.01 Long term (current) use of anticoagulants; Z79.82 Long term (current) use of aspirin; Z86.73 Personal history of transient ischemic attack (TIA), and cerebral infarction without residual deficits; Z86.79 Personal history of other diseases of the circulatory system; Z90.49 Acquired absence of other specified parts of digestive tract
CPT/HCPCS: 99284; 71045; 80053; 84443; 84484; 85025; 93005

== ENCOUNTER → 2024-01-21 09:21 | Outpatient (REF) | payer MEDICARE, OTHER, SELFPAY | LOC: RCS 09:21 | PROVIDERS: ATTENDING PHYSICIAN Internal Medicine Cardiovascular Disease; FAMILY PHYSICIAN Nurse Practitioner Adult Health; OTHER PHYSICIAN Internal Medicine Critical Care Medicine; REFERRING PHYSICIAN Internal Medicine Rheumatology | DX: I48.0 Paroxysmal atrial fibrillation (principal) | CPT/HCPCS: 93306; Q9950 ==

== ENCOUNTER → 2024-03-12 11:04 | Outpatient (REF) | payer MEDICARE, OTHER, SELFPAY ==
[2024-03-12 15:35] LABS: ALT (SGPT) 21 U/L (0-35); AST (SGOT) 28 U/L (14-36); Albumin 4.4 g/dl (3.5-5.0); Alkaline Phosphatase 79 U/L (38-126); Blood Urea Nitrogen 15 mg/dl (7-17); Calcium 9.7 mg/dl (8.4-10.2); Carbon Dioxide 30 mmol/L (22-30); Chloride 100 mmol/L (98-107); Glucose 95 mg/dl (70-99); HDL Cholesterol 74 mg/dl; LDL Cholesterol, Calculated 84 mg/dl; Potassium 4.4 mmol/L (3.5-5.1); Sodium 141 mmol/L (135-145); Total Bilirubin 0.3 mg/dl (0.2-1.3); Total Cholesterol 177 mg/dl (50-199); Total Protein 7.3 g/dl (6.3-8.2); Triglyceride 96 mg/dl (10-149); Very Low Density Lipoprotein 19 mg/dl (0-30); eGFR > 60.00
[2024-03-12 15:46] LABS: % Basophils 0.5 % (0-2); % Eosinophils 1.1 % (0-6); % Immature Granulocytes 0.4 % (0-0.5); % Lymphocytes 25.4 % (20.5-51.1); % Monocytes 6.1 % (1.7-9.3); % Neutrophils 66.5 % (42.2-75.2); Absolute Eosinophils 0.1 10^3/uL (0-0.7); Absolute Lymphocytes 2.1 10^3/uL (1.2-3.4); Absolute Monocytes 0.5 10^3/uL (0.1-0.6); Absolute Neutrophils 5.4 10^3/uL (1.4-6.5); Hematocrit 37.5 % (37.0-47.0); Hemoglobin 12.3 g/dL (12.0-16.0); Mean Corp Hgb Conc. 32.8 g/dL (33.0-37.0); Mean Corpuscular Hgb 29.1 pg (27.0-31.0); Mean Corpuscular Volume 88.7 fL (81.0-99.0); Mean Platelet Volume 9.5 fL (7.4-10.4); Nucleated Red Blood Cells % 0 %; Platelet Count 355 10^3/uL (130-400); Red Blood Cell Count 4.23 10^6/uL (4.20-5.40); Red Cell Dist. Width 14.4 % (11.5-14.5); White Blood Cell Count 8.1 10^3/uL (4.8-10.8)
[2024-03-12 16:22] LABS: Microalbumin/creatinine Ratio 47.6 mg/g
[2024-03-13 11:31] LABS: Glycohemoglobin (HgbA1c) 5.4 % (4.0-5.6)
[2024-03-14 19:50] LABS: Beta-2-Microglobulin 2.4 mg/L (<=3.0)
== END ==
LOC: HWLAB 11:04
PROVIDERS: ATTENDING PHYSICIAN Internal Medicine Rheumatology; FAMILY PHYSICIAN Nurse Practitioner Adult Health; REFERRING PHYSICIAN Internal Medicine Hematology & Oncology
DX: D47.2 Monoclonal gammopathy (principal); M06.4 Inflammatory polyarthropathy; Z79.899 Other long term (current) drug therapy; E11.9 Type 2 diabetes mellitus without complications; I48.0 Paroxysmal atrial fibrillation; I48.91 Unspecified atrial fibrillation; E78.00 Pure hypercholesterolemia, unspecified
CPT/HCPCS: 36415; 80053; 80061; 82043; 82232; 82570; 82784; 83036; 83521; 84155; 84165; 85025; 86140; 86334

== ENCOUNTER → 2024-05-03 10:33 | Outpatient (REF) | payer MEDICARE, OTHER, SELFPAY | LOC: HWRAD 10:33 | PROVIDERS: ATTENDING PHYSICIAN Nurse Practitioner Adult Health; OTHER PHYSICIAN Internal Medicine Hematology & Oncology; REFERRING PHYSICIAN Internal Medicine Rheumatology | DX: Z78.0 Asymptomatic menopausal state (principal) | CPT/HCPCS: 77080 ==

== ENCOUNTER → 2024-07-08 13:24 | Outpatient (REF) | payer MEDICARE, OTHER, SELFPAY ==
[2024-07-08 15:36] LABS: % Basophils 0.6 % (0-2); % Eosinophils 1.1 % (0-6); % Immature Granulocytes 0.3 % (0-0.5); % Lymphocytes 33.7 % (20.5-51.1); % Monocytes 5.2 % (1.7-9.3); % Neutrophils 59.1 % (42.2-75.2); Absolute Eosinophils 0.1 10^3/uL (0-0.7); Absolute Lymphocytes 2.4 10^3/uL (1.2-3.4); Absolute Monocytes 0.4 10^3/uL (0.1-0.6); Absolute Neutrophils 4.2 10^3/uL (1.4-6.5); Hematocrit 38.3 % (37.0-47.0); Hemoglobin 12.6 g/dL (12.0-16.0); Mean Corp Hgb Conc. 32.9 g/dL (33.0-37.0); Mean Corpuscular Hgb 29.3 pg (27.0-31.0); Mean Corpuscular Volume 89.1 fL (81.0-99.0); Mean Platelet Volume 9.4 fL (7.4-10.4); Nucleated Red Blood Cells % 0 %; Platelet Count 311 10^3/uL (130-400); Red Cell Dist. Width 14.7 % (11.5-14.5); White Blood Cell Count 7.1 10^3/uL (4.8-10.8)
[2024-07-08 15:43] LABS: ALT (SGPT) 23 U/L (0-35); AST (SGOT) 27 U/L (14-36); Albumin 4.1 g/dl (3.5-5.0); Alkaline Phosphatase 77 U/L (38-126); Blood Urea Nitrogen 16 mg/dl (7-17); Calcium 9.3 mg/dl (8.4-10.2); Carbon Dioxide 31 mmol/L (22-30); Chloride 103 mmol/L (98-107); Glucose 90 mg/dl (70-99); Sodium 138 mmol/L (135-145); Total Bilirubin 0.4 mg/dl (0.2-1.3); Total Protein 7.1 g/dl (6.3-8.2); eGFR > 60.00
[2024-07-08 15:47] LABS: C-Reactive Protein < 5.00 mg/L (0.0-10.00)
[2024-07-09 07:36] LABS: Glycohemoglobin (HgbA1c) 5.3 % (4.0-5.6)
== END ==
LOC: HWLAB 13:24
PROVIDERS: ATTENDING PHYSICIAN Internal Medicine Rheumatology; FAMILY PHYSICIAN Nurse Practitioner Adult Health
DX: E11.9 Type 2 diabetes mellitus without complications (principal); E66.1 Drug-induced obesity; M06.4 Inflammatory polyarthropathy; M16.0 Bilateral primary osteoarthritis of hip; M17.0 Bilateral primary osteoarthritis of knee; M25.562 Pain in left knee; M48.061 Spinal stenosis, lumbar region without neurogenic claudication; M50.30 Other cervical disc degeneration, unspecified cervical region; M79.10 Myalgia, unspecified site; M81.0 Age-related osteoporosis without current pathological fracture
CPT/HCPCS: 36415; 80053; 83036; 85025; 86140

== ENCOUNTER → 2024-08-27 13:23 | Outpatient (REF) | payer MEDICARE, OTHER, SELFPAY | LOC: HWRAD 13:23 | PROVIDERS: ATTENDING PHYSICIAN Nurse Practitioner Adult Health; OTHER PHYSICIAN Psychiatry & Neurology Neurology; REFERRING PHYSICIAN Internal Medicine Rheumatology | DX: G45.9 Transient cerebral ischemic attack, unspecified (principal) | CPT/HCPCS: 93880 ==

== ENCOUNTER → 2024-09-23 15:25 | Outpatient (REF) | payer MEDICARE, OTHER, SELFPAY | LOC: MRI 3T 15:25 | PROVIDERS: ATTENDING PHYSICIAN Psychiatry & Neurology Neurology; FAMILY PHYSICIAN Nurse Practitioner Adult Health | DX: G45.9 Transient cerebral ischemic attack, unspecified (principal) | CPT/HCPCS: 70551 ==

== ENCOUNTER → 2024-10-14 10:10 | Outpatient (REF) | payer MEDICARE, OTHER, SELFPAY ==
[2024-10-14 12:17] LABS: HDL Cholesterol 68 mg/dl; LDL Cholesterol, Calculated 78 mg/dl; Total Cholesterol 159 mg/dl (50-199); Triglyceride 68 mg/dl (10-149); Very Low Density Lipoprotein 13 mg/dl (0-30)
== END ==
LOC: HWLAB 10:10
PROVIDERS: ATTENDING PHYSICIAN Nurse Practitioner Adult Health; REFERRING PHYSICIAN Internal Medicine Rheumatology
DX: E11.9 Type 2 diabetes mellitus without complications (principal)
CPT/HCPCS: 36415; 80061

== ENCOUNTER → 2024-11-17 13:46 | Outpatient (REF) | payer MEDICARE, OTHER, SELFPAY | LOC: HWWDC 13:46 | PROVIDERS: ATTENDING PHYSICIAN Nurse Practitioner Adult Health | DX: Z12.31 Encounter for screening mammogram for malignant neoplasm of breast (principal) | CPT/HCPCS: 77063; 77067 ==

== ENCOUNTER → 2024-11-18 09:25 | Outpatient (REF) | payer MEDICARE, OTHER, SELFPAY ==
[2024-11-18 12:31] LABS: Urine Albumin 2+ (Neg - Trace); Urine Bilirubin Negative (Negative); Urine Character Cloudy (Clear); Urine Color Yellow; Urine Glucose Negative (Negative); Urine Ketone Negative (Negative); Urine Leukocyte 1+ (Negative); Urine Nitrite Negative (Negative); Urine Occult Blood 2+ (Negative); Urine Urobilinogen 1+ (Neg - 1+)
[2024-11-18 12:31] LABS: % Basophils 0.6 % (0-2); % Eosinophils 1.8 % (0-6); % Immature Granulocytes 0.2 % (0-0.5); % Lymphocytes 31.6 % (20.5-51.1); % Monocytes 6.9 % (1.7-9.3); % Neutrophils 58.9 % (42.2-75.2); Absolute Basophils 0.1 10^3/uL (0-0.2); Absolute Eosinophils 0.2 10^3/uL (0-0.7); Absolute Lymphocytes 2.8 10^3/uL (1.2-3.4); Absolute Monocytes 0.6 10^3/uL (0.1-0.6); Absolute Neutrophils 5.2 10^3/uL (1.4-6.5); Hematocrit 36.2 % (37.0-47.0); Hemoglobin 12.1 g/dL (12.0-16.0); Mean Corp Hgb Conc. 33.4 g/dL (33.0-37.0); Mean Corpuscular Hgb 29.9 pg (27.0-31.0); Mean Corpuscular Volume 89.4 fL (81.0-99.0); Mean Platelet Volume 9.7 fL (7.4-10.4); Nucleated Red Blood Cells % 0 %; Platelet Count 331 10^3/uL (130-400); Red Blood Cell Count 4.05 10^6/uL (4.20-5.40); Red Cell Dist. Width 15.1 % (11.5-14.5); White Blood Cell Count 8.8 10^3/uL (4.8-10.8)
[2024-11-18 13:17] LABS: ALT (SGPT) 20 U/L (0-35); AST (SGOT) 22 U/L (14-36); Albumin 4.4 g/dl (3.5-5.0); Alkaline Phosphatase 53 U/L (38-126); Blood Urea Nitrogen 20 mg/dl (7-17); Calcium 9.4 mg/dl (8.4-10.2); Carbon Dioxide 29 mmol/L (22-30); Chloride 105 mmol/L (98-107); Direct Bilirubin 0.4 mg/dl (0.0-0.4); Glucose 95 mg/dl (70-99); HDL Cholesterol 72 mg/dl; LDL Cholesterol, Calculated 93 mg/dl; Magnesium 1.9 mg/dl (1.6-2.3); Potassium 3.6 mmol/L (3.5-5.1); Sodium 142 mmol/L (135-145); Total Bilirubin 0.6 mg/dl (0.2-1.3); Total Cholesterol 177 mg/dl (50-199); Total Protein 7.4 g/dl (6.3-8.2); Triglyceride 62 mg/dl (10-149); Very Low Density Lipoprotein 12 mg/dl (0-30); eGFR > 60.00
[2024-11-18 13:30] LABS: Free T3 3.94 pg/ml (2.77-5.27)
[2024-11-18 13:31] LABS: Glycohemoglobin (HgbA1c) 5.3 % (4.0-5.6)
[2024-11-18 13:44] LABS: TSH Reflex To Free T4 2.04 uIU/ml (0.47-4.68)
[2024-11-18 13:46] LABS: Urine Squamous Cell >30 /LPF (Few)
[2024-11-18 13:47] LABS: Urine Amorphous Seen; Urine Urothelial Cell 0-2 /LPF (FEW)
[2024-11-18 13:50] LABS: Urine Bacteria Few (Negative); Urine Red Blood Cell 0-2 /HPF (0-2)
[2024-11-18 14:20] LABS: Folate 11.3 ng/ml (2.76-20); Vitamin B12 > 1000 pg/ml (239-931)
[2024-11-19 19:31] LABS: Thyroid Peroxidase Ab (TPO) 10.3 IU/mL (0.0-9.0)
== END ==
LOC: HWLAB 09:25
PROVIDERS: ATTENDING PHYSICIAN Nurse Practitioner Adult Health; OTHER PHYSICIAN Internal Medicine Critical Care Medicine; OTHER PHYSICIAN Internal Medicine Rheumatology; REFERRING PHYSICIAN Internal Medicine Cardiovascular Disease
DX: G45.9 Transient cerebral ischemic attack, unspecified (principal); R41.3 Other amnesia; R79.89 Other specified abnormal findings of blood chemistry; Z86.73 Personal history of transient ischemic attack (TIA), and cerebral infarction without residual deficits; E11.9 Type 2 diabetes mellitus without complications; E53.8 Deficiency of other specified B group vitamins
CPT/HCPCS: 36415; 80053; 80061; 81003; 81015; 82248; 82607; 82746; 83036; 83735; 84443; 84481; 85025; 86376; 87086

== ENCOUNTER → 2025-02-02 09:51 | Outpatient (REF) | payer MEDICARE, OTHER, SELFPAY ==
[2025-02-02 12:03] LABS: Hematocrit 34.7 % (37.0-47.0); Hemoglobin 11.5 g/dL (12.0-16.0); Mean Corp Hgb Conc. 33.1 g/dL (33.0-37.0); Mean Corpuscular Volume 90.6 fL (81.0-99.0); Nucleated Red Blood Cells % 0 %; Platelet Count 309 10^3/uL (130-400); Red Cell Dist. Width 14.6 % (11.5-14.5)
[2025-02-02 12:14] LABS: ALT (SGPT) 22 U/L (0-35); AST (SGOT) 24 U/L (14-36); Albumin 4.3 g/dl (3.5-5.0); Alkaline Phosphatase 55 U/L (38-126); Blood Urea Nitrogen 21 mg/dl (7-17); Calcium 9.2 mg/dl (8.4-10.2); Carbon Dioxide 29 mmol/L (22-30); Chloride 103 mmol/L (98-107); Glucose 89 mg/dl (70-99); Potassium 4.1 mmol/L (3.5-5.1); Sodium 138 mmol/L (135-145); Total Protein 7.0 g/dl (6.3-8.2); eGFR > 60.00
[2025-02-02 12:15] LABS: C-Reactive Protein < 5.00 mg/L (0.0-10.00)
== END ==
LOC: HWLAB 09:51
PROVIDERS: ATTENDING PHYSICIAN Internal Medicine Rheumatology; FAMILY PHYSICIAN Nurse Practitioner Adult Health
DX: E66.1 Drug-induced obesity (principal); M06.4 Inflammatory polyarthropathy; M16.0 Bilateral primary osteoarthritis of hip; M17.0 Bilateral primary osteoarthritis of knee; M25.562 Pain in left knee; Z79.899 Other long term (current) drug therapy
CPT/HCPCS: 36415; 80053; 82248; 85025; 86140; 87086

== ENCOUNTER → 2025-03-21 12:58 | Outpatient (REF) | payer MEDICARE, OTHER, SELFPAY ==
[2025-03-21 15:45] LABS: Hematocrit 37.0 % (37.0-47.0); Hemoglobin 11.9 g/dL (12.0-16.0); Mean Corp Hgb Conc. 32.2 g/dL (33.0-37.0); Mean Corpuscular Volume 90.7 fL (81.0-99.0); Nucleated Red Blood Cells % 0 %; Platelet Count 285 10^3/uL (130-400); Red Cell Dist. Width 14.9 % (11.5-14.5)
[2025-03-21 15:49] LABS: ALT (SGPT) 39 U/L (0-35); AST (SGOT) 32 U/L (14-36); Albumin 4.3 g/dl (3.5-5.0); Alkaline Phosphatase 60 U/L (38-126); Blood Urea Nitrogen 18 mg/dl (7-17); Calcium 9.3 mg/dl (8.4-10.2); Carbon Dioxide 31 mmol/L (22-30); Chloride 104 mmol/L (98-107); Glucose 87 mg/dl (70-99); HDL Cholesterol 73 mg/dl; Iron 89 ug/dl (37-170); LDL Cholesterol, Calculated 73 mg/dl; Potassium 3.9 mmol/L (3.5-5.1); Sodium 136 mmol/L (135-145); Total Protein 7.3 g/dl (6.3-8.2); Very Low Density Lipoprotein 9 mg/dl (0-30); eGFR > 60.00
[2025-03-21 15:55] LABS: C-Reactive Protein < 5.00 mg/L (0.0-10.00)
[2025-03-21 15:59] LABS: Total Iron Binding Capacity 274 ug/dl (265-497)
[2025-03-21 16:19] LABS: Vitamin D, 25-OH*** 44.3 ng/mL (30-80)
[2025-03-21 16:37] LABS: Ferritin 228.0 ng/ml (11.1-264.0)
[2025-03-21 17:08] LABS: Folate 13.7 ng/ml (2.76-20); Vitamin B12 > 1000 pg/ml (239-931)
[2025-03-22 08:11] LABS: Glycohemoglobin (HgbA1c) 5.3 % (4.0-5.6)
== END ==
LOC: HWLAB 12:58
PROVIDERS: ATTENDING PHYSICIAN Internal Medicine Rheumatology; FAMILY PHYSICIAN Nurse Practitioner Adult Health
DX: E55.9 Vitamin D deficiency, unspecified (principal); D64.9 Anemia, unspecified; E11.9 Type 2 diabetes mellitus without complications; I48.0 Paroxysmal atrial fibrillation; E66.1 Drug-induced obesity; M06.4 Inflammatory polyarthropathy; M16.0 Bilateral primary osteoarthritis of hip; M17.0 Bilateral primary osteoarthritis of knee; M17.12 Unilateral primary osteoarthritis, left knee; M25.562 Pain in left knee; M48.061 Spinal stenosis, lumbar region without neurogenic claudication; M50.30 Other cervical disc degeneration, unspecified cervical region; M79.10 Myalgia, unspecified site; M81.0 Age-related osteoporosis without current pathological fracture; Z68.43 Body mass index [BMI] 50.0-59.9, adult; Z79.899 Other long term (current) drug therapy
CPT/HCPCS: 36415; 80053; 80061; 82306; 82607; 82728; 82746; 83036; 83540; 83550; 85025; 86140

== ENCOUNTER → 2025-05-06 11:50 | Outpatient (REF) | payer MEDICARE, OTHER, SELFPAY | LOC: RAD 11:50 | PROVIDERS: ATTENDING PHYSICIAN Nurse Practitioner Adult Health | DX: R07.89 Other chest pain (principal); D89.0 Polyclonal hypergammaglobulinemia | CPT/HCPCS: 71101 ==